=== PATIENT | male | born 2000 | race Two or more races ===

== ENCOUNTER 2020-02-23 02:31 | Emergency (ER) | payer SELFPAY ==
[~2020-02-23] VITALS: Ht 172.7 cm; Wt 68.0 kg
[2020-02-23 02:33] VITALS: BP 136/84
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
[2020-02-23] MEDS ORDERED: Haloperidol 5mg/ml Inj IM ONE (02:45)
--- NOTE | 2020-02-23 02:45 | NUR ---
ED Nurse Note: all medications administered, pt tolerated well no ss of distress noted. will continue to monitor.
--- NOTE | 2020-02-23 02:56 | NUR ---
Patients sister Marilyn shaw ([phone]), also left patients girlfriends [phone]) if patient needs to be picked up. Addendum: 02/23/20 at 0302 by MABRAMANA MARIA Girlfriends name: Yue.
[2020-02-23] MEDS ORDERED: LORazepam Inj 2mg/ml 1ml IM ONE (03:00)
--- NOTE | 2020-02-23 04:25 | NUR ---
ED Nurse Note: pt taken to CT in stable condition, VSS no ss of distress noted. will continue to monitor.
--- NOTE | 2020-02-23 04:45 | NUR ---
ED Nurse Note: Pt returned from CT in stable condition, VSS no ss of distress noted. will continue to monitor.
[2020-02-23 04:50] VITALS: BP 125/72
--- NOTE | 2020-02-23 05:29 | Diagnostic Imaging Report ---
EXAM: CT Head Without Intravenous Contrast CLINICAL HISTORY: TRAUMA TECHNIQUE: Axial computed tomography images of the head/brain without intravenous contrast. CTDI is 43 mGy and DLP is 925 mGy-cm. One or more of the following dose reduction techniques were used: automated exposure control, adjustment of the mA and/or kV according to patient size, use of iterative reconstruction technique. COMPARISON: No relevant prior studies available. FINDINGS: There is no acute intracranial hemorrhage. Trace hyperdensity within the right parietal lobe sulci felt to reflect artifact and not subarachnoid hemorrhage. The territorial velasquez-white matter differentiation is maintained throughout. There is no midline shift or mass effect. The ventricles and sulci are commensurate for age. The visualized orbits appear grossly unremarkable. The calvarium is intact. Right parietal scalp soft tissue raghu. The visualized paranasal sinuses and mastoid air cells are grossly clear. IMPRESSION: No acute intracranial hemorrhage, midline shift, or mass effect.
[2020-02-23] MEDS ORDERED: IBUPROFEN600 M1 ORAL (06:01)
[2020-02-23 06:20] VITALS: BP 117/70
--- NOTE | 2020-02-23 06:21 | NUR ---
ED Nurse Note: pt sleeping in bed, VSS no ss of distress noted. will continue to monitor
--- NOTE | 2020-02-23 07:08 | NUR ---
HAND-OFF: Report given to RASHAAD Martins.
--- NOTE | 2020-02-23 07:09 | NUR ---
ED Nurse Note: Received patient in bed, patient is asleep with eyes closed, chest rise and fall evenly. unable to wake him up at this time.
--- NOTE | 2020-02-23 08:00 | NUR ---
ED Nurse Note: Marilyn, sister, was updated on patient's condition.
--- NOTE | 2020-02-23 12:00 | NUR ---
ED Nurse Note: patient still asleep, unable to wake him up. EPHRAIM armendariz made aware. Marilyn sister updated.
[2020-02-23 14:43] VITALS: BP 100/62
--- NOTE | 2020-02-23 14:43 | NUR ---
ED Nurse Note: patient awake and alert. Marilyn sister and Samaria girlfriend called. offered food, patient declined.
--- NOTE | 2020-02-23 14:55 | NUR ---
ED Nurse Note: patient provided with clothing as requested, patient's sister Marilyn is coming.
[2020-02-23 15:14] VITALS: BP 100/62
--- NOTE | 2020-02-23 15:15 | NUR ---
ER DISCHARGE NOTE: Patient is cleared to be discharged per ERMD DR Najera, pt is aox4, on room air, with stable vital signs. pt was given dc and prescription instructions, pt was able to verbalize understanding, pt id band removed without complications. pt is able to ambulate with steady gait. pt took all belongings. Marilyn, sister, came to pick patient up.
== END 2020-02-23 15:14 | disposition home or self-care (01) ==
LOC: EDBD 02:31 → EMR 02:41
DX: F10.129 Alcohol abuse with intoxication, unspecified (principal); S01.01XA Laceration without foreign body of scalp, initial encounter; S09.90XA Unspecified injury of head, initial encounter; R45.1 Restlessness and agitation; Y04.8XXA Assault by other bodily force, initial encounter; Y92.9 Unspecified place or not applicable
CPT/HCPCS: 12002; 70450; 96372; 99284; J1630